=== PATIENT | female | born 1980 | race Caucasian/White ===

== ENCOUNTER 2016-08-21 12:44 | Emergency (ER) | payer OTHER ==
[~2016-08-21] VITALS: Ht 157.5 cm; Wt 68.0 kg
[~2016-08-21 12:44] MED LIST: CYCLOBENZAPRINE10 M1 PO; DOXYCYCLINE MO100 MG PO; NASONEX0.05 MG/Ac NS; PROAIR HFA0.09 MG/Ac INH; ROBITUSSIN W/CO10 ML PO; VICODIN 5-3001 EACH PO; ZITHROMAX Z-PA250 M1 PO
--- NOTE | 2016-08-21 13:57 | ED INFLUENZA/URI COMPLAINT ---
History of Present Illness General Chief Complaint: Fever Stated Complaint: BODY ACHES CHILLLS Source: patient, family Exam Limitations: no limitations Vital Signs & Intake/Output Vital Signs & Intake/Output Vital Signs Date Time Temp Pulse Resp B/P Pulse O2 O2 Flow FiO2 Ox Delivery Rate 08/21 1301 99.8 109 20 126/84 96 Room Air Allergies Coded Allergies: Penicillins (Mild, RASH 08/21/16) Reconcile Medications Azithromycin 250 MG TABLET 1 DP PO AD strep throat 2 the first day followed by 1 for days 2-5 Ibuprofen 800 MG TABLET 1 TAB PO Q8 PRN PAIN Ondansetron (Zofran Odt) 4 MG TAB.RAPDIS 1 TAB SL TID PRN NAUSEA Prednisone 10 MG TABLET 0 PO DAILY STREP THROAT DAY 1: 6 TABS PO QD DAY 2-5: 3 TABS PO QD Triage Note: TRIAGE: PT TO ER C/C BODY ACHES, CHILLS, FEVER, N/V. ONSET LAST NIGHT. AFEBRILE AT TRIAGE. Triage Nurses Notes Reviewed? yes : No Patient currently breastfeeds: No HPI: Patient is a 36-year-old female presents complaining of nausea, vomiting, fevers , chills, sore throat. Symptoms onset yesterday. Positive sick contacts with similar symptoms. Too many episodes of vomiting to count. Fever was up to 101.3F. Patient took Advil at approximately 645 this morning and took one dose of Tamiflu prior to arrival with no improvement. Symptoms are currently severe. Patient did not receive an influenza vaccination this influenza season. Past History Travel History Traveled to [place] past 21 day No Medical History Any Pertinent Medical History? 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 No Review of Systems Review of Systems Constitutional: Reports: no symptoms. EENTM: Reports: throat pain. Respiratory: Denies: cough, short of breath. Cardiovascular: Denies: chest pain. GI: Reports: see HPI. Genitourinary: Reports: no symptoms. Musculoskeletal: Reports: no symptoms. Skin: Reports: no symptoms. Neurological/Psychological: Reports: no symptoms. Hematologic/Endocrine: Reports: no symptoms. Immunologic/Allergic: Reports: no symptoms. Physical Exam Physical Exam General Appearance: well developed/nourished, alert, awake Head: atraumatic, normal appearance Eyes: Bilateral: normal appearance, PERRL, EOMI. Ears, Nose, Throat: moist mucous membrane, hearing grossly normal, Tympanic normal, MILD PHARYNGEAL ERYTHEMA. tONSILS 2+, NO EXUDATE. Neck: normal inspection, supple, full range of motion Respiratory: normal breath sounds, chest non-tender, no respiratory distress, lungs clear Cardiovascular: regular rate/rhythm Gastrointestinal: soft, non-tender Back: normal inspection, normal range of motion Extremities: normal inspection, normal capillary refill, normal range of motion, no edema Neurologic/Psych: no motor/sensory deficits, awake, alert, oriented x 3, normal gait, normal mood/affect Skin: intact, normal color, warm/dry Lymphatic: no anterior cervical sivakumar Core Measures Severe Sepsis Present: No Septic Shock Present: No Progress Differential Diagnosis: influenza, pneumonia, pharyngitis, sinusitis Plan of Care: Orders Procedure Date/time Status RAPID VIRAL INFLUENZA A 08/21 1407 Complete THROAT CULTURE W/QUICK STREP 08/21 1407 Complete Initial ED EKG: none Departure Departure Time of Disposition: 1512 Disposition: HOME OR SELF CARE Condition: Stable Clinical Impression Primary Impression: Strep pharyngitis Referrals: TERESA CLEVELAND MD (PCP/Family) Additional Instructions: Drink plenty fluids and rest. Follow up with your primary doctor next week if no improvement by Wednesday. Return to the emergency department if unable to stay hydrated, difficulty breathing, swallowing is becoming more difficult, or worsening of symptoms Departure Forms: Customer Survey General Discharge Information Prescriptions: Current Visit Scripts Azithromycin 1 DP PO AD #6 TAB 2 the first day followed by 1 for days 2-5 Prednisone 0 PO DAILY #18 TAB DAY 1: 6 TABS PO QD DAY 2-5: 3 TABS PO QD Ibuprofen 1 TAB PO Q8 PRN PAIN #20 TAB Ondansetron (Zofran Odt) 1 TAB SL TID PRN NAUSEA #10 TAB
[2016-08-21] MEDS ORDERED: ZOFRAN ODT4 M1 SL (15:16)
[2016-08-21] MEDS ORDERED: PREDNISONE10 M2 PO (15:16)
[2016-08-21] MEDS ORDERED: IBUPROFEN800 M1 PO (15:16)
[2016-08-21] MEDS ORDERED: AZITHROMYCIN250 M1 PO (15:16)
[2016-08-21 15:30] VITALS: BP 104/68
== END 2016-08-21 15:32 ==
LOC: ERH 12:44
DX: J02.0 Streptococcal pharyngitis (principal)
CPT/HCPCS: 87804; 87804-59; 96361; 96374; 96375; J1885; J2765

== ENCOUNTER 2017-01-20 18:28 | Emergency (ER) | payer OTHER ==
[~2017-01-20] VITALS: Ht 157.5 cm; Wt 64.4 kg
[~2017-01-20 18:28] MED LIST changes: +AZITHROMYCIN250 M1 PO; +IBUPROFEN800 M1 PO; +PREDNISONE10 M2 PO; +ZOFRAN ODT4 M1 SL
[2017-01-20 18:52] VITALS: BP 126/70
[2017-01-20] MEDS ORDERED: CYCLOBENZAPRINE5 M2 PO (19:01)
[2017-01-20] MEDS ORDERED: IBUPROFEN600 M1 PO (19:01)
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
== END 2017-01-20 19:06 ==
LOC: ERH 18:28
DX: S39.012A Strain of muscle, fascia and tendon of lower back, initial encounter (principal); V43.53XA Car driver injured in collision with pick-up truck in traffic accident, initial encounter; Y92.488 Other paved roadways as the place of occurrence of the external cause